=== PATIENT | male | born 1960 | race Caucasian/White ===

== ENCOUNTER 2016-10-20 13:12 | Emergency (ER) | payer MEDICAID ==
--- NOTE | 2016-10-20 13:18 | ER Document Report ---
ED Medical Screen (RME) - General Chief Complaint: Toothache Stated Complaint: TOOTH PAIN Time seen by provider: 13:15 Mode of Arrival: Ambulatory Notes: Patient states he has been having dental pain for about the last month right lower jaw. Swelling started 2 days ago. Patient is having a hard time eating. I have greeted and performed a rapid initial assessment of this patient. A comprehensive ED assessment and evaluation of the patient, analysis of test results and completion of the medical decision making process will be conducted by additional ED providers. TRAVEL OUTSIDE OF THE [place] IN LAST 30 DAYS: No - Related Data Allergies/Adverse Reactions: acetaminophen [From Vicodin] Allergy (Verified 10/20/16 13:14) hydrocodone bitartrate [From Vicodin] Allergy (Verified 10/20/16 13:14) Past Medical History Musculoskeltal Medical History: Reports Hx Arthritis, Denies Hx Gout Traumatic Medical History: Denies: Hx Fractures Past Surgical History: Reports: Hx Orthopedic Surgery - Immunizations Hx Diphtheria, Pertussis, Tetanus Vaccination: Yes Physical Exam - HEENT Head: Other - Facial swelling noted to right lower jaw. Teeth diagram: 1 - swelling of gums
[2016-10-20] MEDS ORDERED: BUPIVACAINE HCL 0.25% /EPINEPHRINE INJ/PF 30 ML SDV INFIL PRN (14:22)
[2016-10-20] MEDS ORDERED: BUPIVACAINE HCL 0.5 % INJ/PF 30 ML SDV INJ ONE (14:33)
--- NOTE | 2016-10-20 14:58 | ER Document Report ---
ED Oral Problem - General Chief Complaint: Toothache Stated Complaint: TOOTH PAIN Mode of Arrival: Ambulatory Information source: Patient Notes: 55-year-old male presents to the emergency department complaining of right lower dental pain. Patient reports decayed molar that intermittently causes him pain however over the last 2 days pain has become persistent and unbearable and has noted some localized swelling. Denies fever, drainage, difficulty breathing or swallowing. Reports has not been able to set up an appointment with a dental provider. TRAVEL OUTSIDE OF THE [place] IN LAST 30 DAYS: No - HPI Patient complains to provider of: Toothache Onset: Yesterday Onset: Gradual Quality of pain: Achy Severity: Moderate Pain Level: 4 Swollen jaw/face: Mild Associated symptoms: Toothache. denies: None, Chills, Cough, Decreased appetite , Dental decay, Difficulty speaking, Drainage, Drooling, Earache, Facial pain, Fever, Headache, Jaw pain, Short of breath, Sweaty, Tongue swelling, Unable to swallow, White patches in mouth, Other Similar symptoms previously: Yes Recently seen / treated by doctor/dentist: No - Related Data Allergies/Adverse Reactions: acetaminophen [From Vicodin] Allergy (Verified 10/20/16 13:14) hydrocodone bitartrate [From Vicodin] Allergy (Verified 10/20/16 13:14) Past Medical History - General Information source: Patient - Social History Smoking Status: Current Every Day Smoker Frequency of alcohol use: None Drug Abuse: None Lives with: Family Family History: Reviewed & Not Pertinent Patient has suicidal ideation: No Patient has homicidal ideation: No Renal/ Medical History: Denies: Hx Peritoneal Dialysis Musculoskeltal Medical History: Reports Hx Arthritis, Denies Hx Gout Traumatic Medical History: Denies: Hx Fractures Past Surgical History: Reports: Hx Orthopedic Surgery - Immunizations Hx Diphtheria, Pertussis, Tetanus Vaccination: Yes Review of Systems - Review of Systems Constitutional: No symptoms reported EENT: See HPI Cardiovascular: No symptoms reported Respiratory: No symptoms reported Gastrointestinal: No symptoms reported Genitourinary: No symptoms reported Male Genitourinary: No symptoms reported Musculoskeletal: No symptoms reported Skin: No symptoms reported Hematologic/Lymphatic: No symptoms reported Neurological/Psychological: No symptoms reported -: Yes All other systems reviewed and negative Physical Exam - Vital signs Vitals: Temp Pulse Resp BP Pulse Ox 97.7 F 99 20 176/125 H 97 10/20/16 13:15 10/20/16 13:15 10/20/16 13:15 10/20/16 13:15 10/20/16 13:15 - General General appearance: Appears well, Alert In distress: None - HEENT Head: Normocephalic, Atraumatic Eyes: Normal Conjunctiva: Normal Eyelashes: Normal Pupils: PERRL Ears: Normal External canal: Normal Tympanic membrane: Normal Sinus: Normal Nasal: Normal Mouth/Lips: Caries. No: Normal, Angioedema, Laceration, Lesions, Other Mucous membranes: Normal, Moist Teeth diagram: 1 - Tenderness with palpation, mild localized swelling without drainage or fluctuance. Pharynx: Normal. No: Blood in hypopharynx, Erythema, Exudate, Peritonsillar abscess, Post nasal drainage, Retropharyngeal abscess, Tonsillar hypertrophy, Uvular edema, Potential airway comprom., Other Neck: Normal. No: Anterior cervical chain, Posterior cervical chain, Lymphadenopathy, Meningismus, Subcutaneous emphysema Course - Re-evaluation Re-evalutation: 10/20/16 15:05 Patient hemodynamically stable, in no distress, afebrile. No trismus, abscess, or suggestion of emergent deep space or soft tissue infection at this time. Pain relief provided with inferior alveolar block using 0.5% bupivacaine. Patient tolerated well. Patient appears stable for discharge and agrees with home care, follow-up with dental provider, and ED return precautions. - Vital Signs Vital signs: Temp Pulse Resp BP Pulse Ox 98.6 F 80 18 150/97 H 96 10/20/16 15:05 10/20/16 15:05 10/20/16 15:05 10/20/16 15:05 10/20/16 15:05 Discharge - Discharge Clinical Impression: Pain, dental Condition: Stable Disposition: HOME, SELF-CARE Additional Instructions: TOOTHACHE: Your pain is due to dental decay. The tooth must be repaired in order for you to feel better. You will, therefore, be referred to a dentist. We do not have dentists on the staff at [facility]. Severe swelling or drainage around a tooth usually means a dental abscess. This also requires evaluation and treatment by the dentist, but antibiotics may be prescribed while awaiting dental treatment. You should be rechecked immediately if you develop major swelling of the face, increasing pain, a lump in the jaw or gums, headache, difficulty swallowing, or fever. Dental Infection or Abscess You have an infection, perhaps an abscess (pus formation) of the gum around one of your teeth, which is probably decayed. If there is an abscess, it may drain on its own or it may need to be opened or lanced. Severe swelling or drainage around a tooth usually means a deep dental abscess which usually requires evaluation and treatment by a dentist or oral surgeon. Antibiotics may be prescribed while awaiting dental treatment. If you develop high fever with chills, worsening pain, or increasing swelling in the area, see a dentist or oral surgeon immediately or return to the Emergency Department immediately. CLINDAMYCIN: You have been given a prescription for the antibiotic clindamycin. It is often prescribed for infections in the mouth, such as dental infections or abscesses, and for skin infections due to MRSA. It's important that you take all the medication, unless instructed otherwise by your physician. Failure to complete the entire course can result in relapse of your condition. Common side effects of antibiotics include nausea, intestinal cramping, or diarrhea. Women may develop vaginal yeast infections, and babies can get yeast (thrush) in the mouth following the use of antibiotics. Contact your physician if you develop significant side effects from this medication. Allergy to this antibiotic can result in hives, wheezing, faintness, or itching. If symptoms of allergy occur, stop the medication and call the doctor. Anti-Inflammatory Medication You have received a prescription for an antiinflammatory agent. This is an excellent, safe drug for pain control. In addition, it has potent antiinflammatory effects which are beneficial, especially in the treatment of injuries, arthritis, or tendonitis. It's best to take this medicine with food. Persons with ulcer disease or allergy to aspirin should notify their physician of this before taking this drug. Take the medication exactly as prescribed. Don't take additional doses unless instructed to do so by your doctor. If you develop wheezing, shortness of breath, hives, faintness, stomach pain, vomiting, or dark black stools, return for re-evaluation at once. FOLLOW-UP CARE: You have been referred for follow-up care to the dentists listed below. Call the dentists office for an appointment as you were instructed or within the next two days. If you experience worsening or a significant change in your symptoms, notify the physician immediately or return to the Emergency Department at any time for re-evaluation. [facility] [address] [place], [place] mornings, by appointment [facility] [address] [place] [address] [facility] [address] [facility] [address] [facility] [address] [facility] [address] [facility] [employer] [email or web address] [address] [place] [address] Sunday- 8:00am to 5:00 pm Will see patients from other [facility]. Charges based on income and family size and accepts Medicare, Medicaid, and Insurances Will pull molars [facility] [address] Hours of Operation 8:00 am - 4:30 pm weekdays The following dental offices accept Medicaid: [facility] Dr. [address] Dr. Ramos Dr. Ortiz Dr. Dale Ean Ulrich Lutsavage, and Deep oral surgery Dr. Flores ([place]) Dr. Figueroa ([place]) [facility] Drs. Davis ([place]) Dr. Lane ([place]) [facility] Dr. Duran ([place]) Drs. Rodrigez and ([place]) Medicaid Care Line Prescriptions: Clindamycin HCl 300 mg PO Q6H #20 capsule Naproxen 500 mg PO BIDP PRN #10 tablet PRN Reason: Forms: Elevated Blood Pressure Referrals: HUGO SMITH, UNDERWRITING SUPPORT MANAGER-C [Primary Care Provider] - Follow up in 3-5 days
[2016-10-20 15:08] VITALS: BP 150/97
== END 2016-10-20 15:08 | disposition home or self-care (01) ==
LOC: ER 13:12
DX: K08.9 Disorder of teeth and supporting structures, unspecified (principal); F17.200 Nicotine dependence, unspecified, uncomplicated; Z88.6 Allergy status to analgesic agent
CPT/HCPCS: 99282

== ENCOUNTER → 2018-09-26 | Outpatient (CLI) | payer MEDICAID ==
[2018-09-26 09:43] LABS: HEMOGLOBIN 15.6 g/dL (13.5-17.0); MEAN CORPUSCULAR HGB CONC 35.5 g/dL (32.0-36.0); MEAN CORPUSCULAR VOLUME 93 fl (80-97); PLATELET COUNT 307 10^3/uL (150-450); RED BLOOD COUNT 4.74 10^6/uL (4.35-5.55); RED CELL DISTRIBUTION WIDTH 13.1 % (11.5-14.0); WHITE BLOOD COUNT 8.6 10^3/uL (4.0-10.5)
[2018-09-26 10:08] LABS: ANION GAP 10 (5-19); BLOOD UREA NITROGEN 10 mg/dL (7-20); CALCIUM 9.9 mg/dL (8.4-10.2); CARBON DIOXIDE 27 mmol/L (22-30); CHLORIDE 105 mmol/L (98-107); GLUCOSE 87 mg/dL (75-110); SODIUM 141.8 mmol/L (137-145)
[2018-09-26 10:18] LABS: POTASSIUM 6.2 mmol/L (3.6-5.0)
--- NOTE | 2018-09-26 11:11 | EKG REPORT ---
SEVERITY:- OTHERWISE NORMAL ECG - SINUS RHYTHM MINIMAL ST ELEVATION, ANTERIOR LEADS : Confirmed by: Renan Pereira 26-Sep-2018 11:11:00
--- NOTE | 2018-09-26 13:56 | RADIOLOGY REPORT (SQ) ---
EXAM DESCRIPTION: CHEST PA/LATERAL COMPLETED DATE/TIME: 09/26/2018 9:02 am REASON FOR STUDY: PRE-OP COMPARISON: 07/08/2018 EXAM PARAMETERS: NUMBER OF VIEWS: two views TECHNIQUE: Digital Frontal and Lateral radiographic views of the chest acquired. RADIATION DOSE: NA LIMITATIONS: none FINDINGS: LUNGS AND PLEURA: No opacities, masses or pneumothorax. No pleural effusion. MEDIASTINUM AND HILAR STRUCTURES: No masses or contour abnormalities. HEART AND VASCULAR STRUCTURES: Heart normal size. No evidence for failure. BONES: No acute findings. HARDWARE: None in the chest. OTHER: No other significant finding. IMPRESSION: NO SIGNIFICANT RADIOGRAPHIC FINDING IN THE CHEST. TECHNICAL DOCUMENTATION: JOB ID: [id number] [employer]- All Rights Reserved Reading location - IP/workstation name: [email or web address]
== END ==
LOC: OD 08:36
PROVIDERS: ATTEND Surgery
DX: Z01.810 Encounter for preprocedural cardiovascular examination (principal); Z01.818 Encounter for other preprocedural examination; K40.90 Unilateral inguinal hernia, without obstruction or gangrene, not specified as recurrent; K42.9 Umbilical hernia without obstruction or gangrene; F17.200 Nicotine dependence, unspecified, uncomplicated; M53.9 Dorsopathy, unspecified; M25.551 Pain in right hip; M54.9 Dorsalgia, unspecified; M19.90 Unspecified osteoarthritis, unspecified site; R05 Cough
CPT/HCPCS: 36415; 71046; 80048; 85027; 93005; 93010

== ENCOUNTER 2018-10-02 08:45 | Day surgery (SDC) | payer MEDICAID ==
[~2018-10-02 08:45] MED LIST: CEFAZOLIN 2 GM/D5W RTU 2 GM/50 ML RTUPB IV PRN; IBUPROFEN 800 MG in NORMAL SALINE 250 ML IV PRN; LACTATED RINGERS 1000 ML IV PRN; LIDOCAINE 0.5% INJ-PF (5 MG/ML) 50 ML SDV SUBCUT PRN
[2018-10-02] MEDS ORDERED: BUPIVACAINE HCL 0.25 % INJ/PF (2.5 MG/1 ML) 30 ML VIAL ONE (09:06)
[2018-10-02] MEDS ORDERED: SUCCINYLCHOLINE CHLORIDE INJ 200 MG/10 ML VIAL ONE (09:27)
[2018-10-02] MEDS ORDERED: ROCURONIUM BROMIDE INJ 50 MG/5 ML VIAL IV ONE (09:27)
[2018-10-02] MEDS ORDERED: OXYCODONE HCL IR 5 MG TABLET ONE ×2 (10:24→15:41)
[2018-10-02] MEDS ORDERED: OXYCODONE-ACETAMINOPHEN 5-325 MG TABLET ONE ×2 (10:24→15:41)
[2018-10-02] MEDS ORDERED: CEFAZOLIN 2 GM/D5W RTU 2 GM/50 ML RTUPB IV ONE (10:29)
[2018-10-02] MEDS ORDERED: MIDAZOLAM 2 MG/2 ML INJ ONE ×2 (10:41→12:36)
[2018-10-02] MEDS ORDERED: FENTANYL CITRATE INJ/PF 100 MCG/2 ML AMPUL ONE ×2 (12:36→13:06)
[2018-10-02] MEDS ORDERED: HYDROMORPHONE HCL INJ/PF 2 MG/ML AMPULE ONE (12:36)
[2018-10-02] MEDS ORDERED: PROPOFOL INJ 200 MG/20 ML VIAL IV ONE (12:37)
[2018-10-02] MEDS ORDERED: ACETAMINOPHEN 1,000 MG/100 ML RTUPB IV ONE (12:37)
[2018-10-02] MEDS ORDERED: ONDANSETRON HCL INJ/PF 4 MG/2 ML SDV ONE (12:40)
[2018-10-02] MEDS ORDERED: MORPHINE SULFATE 10 MG/ML INJ IV PRN (13:46)
[2018-10-02] MEDS ORDERED: FENTANYL CITRATE INJ/PF 100 MCG/2 ML AMPUL IV PRN ×3 (13:46)
[2018-10-02] MEDS ORDERED: MEPERIDINE HCL/PF INJ 25 MG/1 ML DISP.SYRIN IV PRN (13:46)
[2018-10-02] MEDS ORDERED: DIPHENHYDRAMINE HCL 50 MG/ML VIAL IV PRN (13:46)
[2018-10-02] MEDS ORDERED: PROMETHAZINE HCL INJ 25 MG/1 ML VIAL IV PRN ×2 (13:46)
[2018-10-02] MEDS ORDERED: OXYCODONE HCL IR 5 MG TABLET PO PRN (14:39)
[2018-10-02] MEDS ORDERED: OXYCODONE-ACETAMINOPHEN 5-325 MG TABLET PO PRN (14:39)
--- NOTE | 2018-10-02 14:39 | Discharge Summary ---
Discharge Summary (SDC) - Discharge Final Diagnosis: Symptomatic right inguinal hernia, symptomatic umbilical hernia. Date of Surgery: 10/02/18 Discharge Date: 10/02/18 Condition: Stable Treatment or Instructions: Discharge home. Diet as tolerated. Activity: No lifting greater than 10 pounds x 6 weeks. Follow-up with me in 7-10 days. Okay to shower in 48 hours. No hot tubs, swimming pools, or tub baths times 2 weeks. Percocet 10/325 mg p.o. every 6 hours as needed for pain. Referrals: OJ SALEEM PA [Primary Care Provider] - Discharge Diet: As Tolerated Respiratory Treatments at Home: Deep Breathing/Coughing, Incentive Spirometer Discharge Activity: No Lifting Over 10 Pounds, No Lifting/Push/Pulling Home Care Assistance: None Needed Report the Following to Your Physician Immediately: Shortness of Breath, Nausea, Vomiting, Increase in Pain, Unusual Bleeding, Redness, Swelling, Warmth, Increased Soreness
[2018-10-02 16:42] VITALS: BP 137/94
--- NOTE | 2018-10-03 14:34 | Operative Report ---
Nonrecallable Operative Report DATE OF SURGERY: 10/02/18 PREOPERATIVE DIAGNOSIS: Symptomatic right inguinal hernia and symptomatic umbilical hernia. POSTOPERATIVE DIAGNOSIS: Same OPERATION: 1. Robot-assisted laparoscopic right inguinal hernia repair with mesh. 2. Open umbilical hernia repair with mesh. SURGEON: ROBB DOWLING MEDICAL IMAGING TECHNICIAN: ANNE ZAPATA ANESTHESIA: GA TISSUE REMOVED OR ALTERED: None COMPLICATIONS: None apparent ESTIMATED BLOOD LOSS: Minimal PROCEDURE: Drains/implants: #1. large right-sided 3 DMax inguinal hernia mesh. #2. [address] umbilical hernia mesh. Procedure in detail: After informed consent was obtained, the patient was brought to the operating room and laid in the supine position. The area of the abdomen was prepped and draped in a normal sterile fashion. A curvilinear supraumbilical incision was created with a 15 blade scalpel. Dissection was carried through the subcutaneous tissue using blunt dissection. The cicatrix was encircled with a Laisha clamp, retracted upwards, and divided sharply. The umbilical hernia defect was then used to introduce the balloon trocar into the abdominal cavity. Gas insufflation was attached, and pneumoperitoneum was achieved. Two 8 mm lateral abdominal robotic trochars were placed under direct visualization, laparoscopically. This was done in the right and left lateral abdominal wall. The robot was then brought over the patient and docked appropriately. I then assumed my position at the surgeon's console. Attention was turned to the right groin. There was a large inguinal hernia defect identified. It was in the direct position. An incision was created in the peritoneum 2-3 cm superior to the inguinal hernia defect. A preperitoneal dissection was then undertaken. This was done using sharp dissection, blunt dissection, and electrocautery. The hernia sac was freed from the defect. The peritoneum was freed from the cord structures, taking great care not to injure the cord structures. Once the space was opened, and a large 3 DMax inguinal hernia mesh was placed into the preperitoneal space. It was sutured to the anterior abdominal wall medially and superiorly. It was found to cover the defect very well. Once this was completed, the peritoneum was closed using 2-0 V lock suture in simple running fashion. The robot was undocked, the trochars were removed, and pneumoperitoneum was relieved. I then scrubbed back into the case. The supraumbilical fascia was closed using 0 Vicryl suture in [id number] fashion. The overlying skin was closed using 4-0 Vicryl Rapide suture in subcuticular fashion. Dressings were placed, and the procedure was concluded. All sponge, instrument, and needle counts were correct x2. Condition: Stable. Anne Zapata PA-C was scrubbed and present the entirety of the procedure. She assisted with all portions of the procedure including opening of the abdomen, placement of the trochars, exchanging of the robotic instruments, removal of the robotic trochars, closure of the fascia, and closure of the skin.
== END 2018-10-02 16:42 | disposition home or self-care (01) ==
LOC: OROUT 08:45
PROVIDERS: ATTEND Surgery
DX: K40.90 Unilateral inguinal hernia, without obstruction or gangrene, not specified as recurrent (principal); K42.9 Umbilical hernia without obstruction or gangrene; F17.210 Nicotine dependence, cigarettes, uncomplicated; Z79.899 Other long term (current) drug therapy
CPT/HCPCS: 49585; 49650; S2900; 36415; 840; 84132; 86850; 86900; 86901; C1781; J0131; J0330; J0690; J1170; J1741; J2250; J2405; J2704; J3010; J3490; J7050

== ENCOUNTER 2018-10-05 10:53 | Emergency (ER) | payer MEDICAID ==
[2018-10-05 11:15] VITALS: BP 125/85
[2018-10-05] MEDS ORDERED: MAGNESIUM CITRATE 296 ML BOTTLE PO ONE (11:26)
--- NOTE | 2018-10-05 11:30 | ER Document Report ---
ED Medical Screen (RME) - General Chief Complaint: Post Surgical Pain Stated Complaint: SURGICAL SITE PAIN Time Seen by Provider: 10/05/18 11:21 Primary Care Provider: OJ SALEEM PA [Primary Care Provider] - Follow up as needed Mode of Arrival: Ambulatory Information source: Patient Notes: This is a 57-year-old man status post hernia repair last week who presents to the emergency room with concerns for possible wound infection. Patient also states he has been constipated since the day before the surgery. He denies any abdominal pain at this time. He denies any fever, he is tolerating oral. TRAVEL OUTSIDE OF THE [place] IN LAST 30 DAYS: No - HPI Onset: Last week Onset/Duration: Gradual Quality of pain: No pain Severity: None Pain Level: Denies Associated Symptoms: denies: Chest pain, Shortness of breath Exacerbated by: Denies Relieved by: Denies Similar symptoms previously: Yes Recently seen / treated by doctor: Yes - Related Data Smoking: Cigarettes Frequency of alcohol use: None Drug Abuse: None Allergies/Adverse Reactions: No Known Allergies Allergy (Verified 10/05/18 10:54) Past Medical History - General Information source: Patient - Social History Cigarette use (# per day): Yes - Half pack per day Chew tobacco use (# tins/day): No Frequency of alcohol use: None Drug Abuse: None Lives with: Family Family history: None - Past Medical History Cardiac Medical History: Denies: Hx Coronary Artery Disease, Hx Heart Attack, Hx Hypertension Pulmonary Medical History: Denies: Hx Asthma, Hx Bronchitis, Hx COPD, Hx Pneumonia Neurological Medical History: Denies: Hx Cerebrovascular Accident, Hx Seizures Renal/ Medical History: Denies: Hx Peritoneal Dialysis Musculoskeltal Medical History: Reports Hx Arthritis - NECK, SHOULDERS, BACK, Denies Hx Gout Traumatic Medical History: Denies: Hx Fractures Past Surgical History: Reports: Hx Orthopedic Surgery, Other - That is post recent hernia repair - Immunizations Hx Diphtheria, Pertussis, Tetanus Vaccination: No History of Influenza Vaccine for 05/2017 - 10/2017 Season: No Review of Systems - Review of Systems Constitutional: denies: Chills, Fever EENT: denies: Throat swelling, Mouth pain Cardiovascular: denies: Chest pain, Palpitations, Heart racing Respiratory: denies: Cough, Short of breath, Wheezing Gastrointestinal: Constipation. denies: Abdominal pain, Vomiting, Black stools Skin: See HPI Hematologic/Lymphatic: No symptoms reported Neurological/Psychological: No symptoms reported Physical Exam - Vital signs Vitals: Temp Pulse Resp BP Pulse Ox 98.9 F 79 18 125/85 93 10/05/18 11:14 10/05/18 11:14 10/05/18 11:14 10/05/18 11:14 10/05/18 11:14 Notes: Physical exam: GENERAL: 57-year-old man, alert and oriented x3, no acute distress HEAD: Atraumatic, normocephalic. EYES: Pupils equal round and reactive to light, extraocular movements intact, sclera anicteric, conjunctiva are normal. ENT: TMs normal, nares patent, oropharynx clear without exudates. Moist mucous membranes. NECK: supple without obvious mass ABDOMEN: Soft, normoactive bowel sounds. No tenderness to palpation. No guarding, no rebound. Postoperative wound site: Status post laparoscopic surgery with entrance points in the umbilicus, left and right quadrants. He does have some bruising around the umbilical entrance point. There is no warmth, fluctuance, discharge. There is no evidence of cellulitis. EXTREMITIES: Normal range of motion, no pitting or edema. No clubbing or cyanosis. NEUROLOGICAL: Patient has normal speech, moving all extremities, gait normal and no problems with balance. PSYCH: Normal mood, normal affect. SKIN: As mentioned above under the abdomen exam. Course - Re-evaluation Re-evalutation: 10/05/18 11:32 Note: Patient's wound site looks good, no evidence of infection at this time. Patient's abdomen is soft and nontender. He does report constipation and not having a bowel movement since the day before surgery. Will prescribe a stool softener and will provide bottle of mag citrate. Does have an appointment with Dr. Gutierrez on October 14. 10/05/18 11:34 - Vital Signs Vital signs: Temp Pulse Resp BP Pulse Ox 98.9 F 79 18 125/85 93 10/05/18 11:14 10/05/18 11:14 10/05/18 11:14 10/05/18 11:14 10/05/18 11:14 Doctor's Discharge - Discharge Clinical Impression: Constipation, Healing wound site Condition: Stable Disposition: HOME, SELF-CARE Additional Instructions: As we discussed, the wound site looks good today. He did exactly what we want you to do: Return to the ER if you have any concerns of increasing redness, discharge, pain or if you develop fever (temperature greater than 100.5). Follow-up with Dr. Gutierrez as planned on the of this month For the constipation: Take the Colace as prescribed. You can drink the bottle of mag citrate slowly over the day. May take a few hours to work. Return to the ER for any abdominal pain. Prescriptions: Docusate Sodium [Colace 100 mg Capsule] 100 mg PO DAILY #30 capsule Referrals: OJ SALEEM PA [Primary Care Provider] - Follow up as needed
== END 2018-10-05 11:30 | disposition home or self-care (01) ==
LOC: ER 10:53
DX: G89.18 Other acute postprocedural pain (principal); K59.00 Constipation, unspecified; F17.210 Nicotine dependence, cigarettes, uncomplicated
CPT/HCPCS: 99283; J3490

== ENCOUNTER → 2019-02-26 | Outpatient (CLI) | payer MEDICAID ==
--- NOTE | 2019-02-26 14:23 | RADIOLOGY REPORT (SQ) ---
EXAM DESCRIPTION: SHOULDER BILAT 2 OR MORE VIEWS COMPLETED DATE/TIME: 02/26/2019 1:25 pm REASON FOR STUDY: NECK AND VICTORIA SHOULDER PAIN M54.2 CERVICALGIA COMPARISON: None. NUMBER OF VIEWS: Three views. TECHNIQUE: Internal rotation, external rotation, and Y view images acquired of the right and left sh oulder. LIMITATIONS: None. FINDINGS: MINERALIZATION: Normal. BONES: No acute fracture or dislocation. Right shoulder demonstrates degenerative changes at the acr omioclavicular joint with well corticated ossific fragments and widening. There is decreased subacro mial space. Additional degenerative changes at the superolateral glenohumeral head likely secondary to chronic rotator cuff disease. Left shoulder demonstrates superior migration of the humeral head w ith decreased subacromial space compatible chronic rotator cuff disease. Glenohumeral osteophytosis bilaterally. JOINTS: No dislocation. VISUALIZED LUNGS AND RIBS: No pneumothorax. No rib fracture. SOFT TISSUES: No radiopaque foreign body. OTHER: No other significant finding. IMPRESSION: 1. No evidence of acute bony abnormality. 2. Evidence of bilateral chronic rotator cuff disease and glenohumeral osteoarthropathy. 3. Chronic degenerative changes at the right acromioclavicular joint likely related to remote injury . TECHNICAL DOCUMENTATION: JOB ID: [id number] [employer]- All Rights Reserved Reading location - IP/workstation name: [email or web address]
--- NOTE | 2019-02-26 14:35 | RADIOLOGY REPORT (SQ) ---
EXAM DESCRIPTION: C SP 4 OR 5 VIEWS COMPLETED DATE/TIME: 02/26/2019 1:25 pm REASON FOR STUDY: NECK AND VICTORIA SHOULDER PAIN M54.2 CERVICALGIA COMPARISON: None. NUMBER OF VIEWS: Five views. TECHNIQUE: AP, lateral, obliques and odontoid radiographic images acquired of the cervical spine. LIMITATIONS: None. FINDINGS: MINERALIZATION: Normal. ALIGNMENT: Anatomic. VERTEBRAE: Vertebral bodies of normal height. DISCS: Mild disc space narrowing at C4-5, C5-C6 and C6-C7. FORAMINA: There is foraminal narrowing on the left at C3-4. LATERAL AND POSTERIOR ELEMENTS: Facets, lateral masses and spinous processes without significant find ings. HARDWARE: None in the spine. SOFT TISSUES: No masses or calcifications. Lung apices clear. OTHER: No other significant finding. IMPRESSION: Multilevel disc space narrowing. Foraminal narrowing on the left at C3-4. TECHNICAL DOCUMENTATION: JOB ID: [id number] [employer]- All Rights Reserved Reading location - IP/workstation name: [email or web address]
== END ==
LOC: OD 13:10
PROVIDERS: ATTEND Family Medicine
DX: M54.2 Cervicalgia (principal); M19.011 Primary osteoarthritis, right shoulder; M25.512 Pain in left shoulder; M25.511 Pain in right shoulder
CPT/HCPCS: 72050